=== PATIENT | female | born 1995 | race Caucasian/White ===

== ENCOUNTER 2020-09-22 05:43 | Inpatient (IN) | payer OTHER, SELFPAY ==
[2020-09-22] VITALS (130 sets, daily range): BP systolic 82–147; BP diastolic 33–119; PULSE 28–158; RESP 16; TEMP 37.1–37.3; O2SAT 80–100; BMI 32.8
--- NOTE | 2020-09-22 07:25 | WPDOBADMIT ---
Obstetrics - Admit Note Admission Note: record reviewed. No pertinent additions to the history and/or any subsequent changes in the physical findings that are not consistent with the expected course of the were found. Pt arrived after SROM around 5am today, SVE 6/100/-2, forebag AROM moderate amount of clear and odorless fluid Additions to the history and/or subsequent changes in the physical findings follow. None.
[2020-09-22 07:39] LABS: Basophils Percent Auto 0.2 % (0.2-1.2); Hematocrit 36.2 % (37.0-47.0); Hemoglobin 11.8 g/dL (12.0-15.0); Immature Granulocyte Percent A 0.6 % (0-0.5); Lymphocytes Absolute Auto 1.49 K/mm3 (0.9-3.2); Lymphocytes Percent Auto 8.3 % (18.3-44.2); Mean Corpuscular HGB Conc 32.6 g/dl (32-36); Mean Corpuscular Hemoglobin 28.9 pg (26-34); Mean Corpuscular Volume 88.7 fl (80-100); Mean Platelet Volume 10.4 fl (7.4-10.4); Monocytes Absolute Auto 1.2 K/mm3 (0.1-0.6); Monocytes Percent Auto 6.7 % (2.6-8.5); Neutrophils Absolute Auto 15.1 K/mm3 (1.3-6.7); Neutrophils Percent Auto 84.2 % (45.5-73.1); Platelet Count Result 315 k/mm3 (150-375); Red Blood Count 4.08 M/mm3 (4.2-5.4); Red Cell Distribution Width 13.6 % (11.5-14.5); White Blood Count 17.9 K/mm3 (4.5-10.0)
[2020-09-22] MEDS: LACTATED RINGERS 1,000 ML 125 ML IV CONT ×3 (07:39→09:56)
[2020-09-22] MEDS: fentaNYL CITRATE INJ (*CRX) 100 MCG/2 ML VIAL 50 MCG IV PUSH ×2 (07:53→07:57)
[2020-09-22 07:58] LABS: Amphetamine Screen Urine Negative (Negative); Barbiturate Screen Urine Negative (Negative); Benzodiazepines Screen Urine Negative (Negative); Cannabinoid Screen Urine Positive (Negative); Cocaine Screen Urine Negative (Negative); Methadone Screen Urine Negative (Negative); Opiate Screen Urine Negative (Negative); Phencyclidine Screen Urine Negative (Negative)
--- NOTE | 2020-09-22 08:39 | WPDANESEPPF ---
Anes - Initial Pre Proc Eval Procedure: labor epidural Date/Time: 09/22/20 08:39 Surgeon: Annie Solorio MD Pre Op Diagnosis: Contractions/SROM Patient Data Age: 24 Gender: F Height: 1.65 m Weight: 89.4 kg Last Vital Signs Pulse 107 H 09/22/20 08:38 BP 135/83 09/22/20 08:38 Pulse Ox 99 09/22/20 08:34 Allergies Allergy/AdvReac Type Severity Reaction Status Date / Time cefdinir Allergy Intermediate Hives / Verified 09/04/16 18:43 [place] Penicillins Allergy Intermediate Hives / Verified 09/04/16 18:43 [place] Sulfa (Sulfonamide Allergy Intermediate Hives / Verified 09/04/16 18:43 Antibiotics) Red Face Home Medications Medication Instructions Recorded Confirmed Type prenat.vits,omi,ats-iojb-xrmzc 1 tablet PO DAILY 09/01/20 09/01/20 History [ #2] Laboratory Tests 09/22/20 09/22/20 09/22/20 07:24 07:24 07:24 WBC 17.9 K/mm3 H K/mm3 (4.5-10.0) RBC 4.08 M/mm3 L M/mm3 (4.2-5.4) Hgb 11.8 g/dL L g/dL (12.0-15.0) Hct 36.2 % L % (37.0-47.0) MCV 88.7 fl fl (80-100) MCH 28.9 pg pg (26-34) MCHC 32.6 g/dl g/dl (32-36) RDW 13.6 % % (11.5-14.5) Plt Count 315 k/mm3 k/mm3 (150-375) MPV 10.4 fl fl (7.4-10.4) Immature Gran % (Auto) 0.6 % H % (0-0.5) Neut % (Auto) 84.2 % H % (45.5-73.1) Lymph % (Auto) 8.3 % L % (18.3-44.2) [place] % (Auto) 6.7 % % (2.6-8.5) Eos % (Auto) 0.0 % % (0-4.4) Baso % (Auto) 0.2 % % (0.2-1.2) Lymph # (Auto) 1.49 K/mm3 K/mm3 (0.9-3.2) [place] # (Auto) 1.2 K/mm3 H K/mm3 (0.1-0.6) Eos # (Auto) 0.0 K/mm3 K/mm3 (0-0.3) Baso # (Auto) 0.0 K/mm3 K/mm3 (0.0-0.1) Abs Immat Gran (auto) 0.10 K/mm3 H K/mm3 (0.00-0.031) Absolute Neuts (auto) 15.1 K/mm3 H K/mm3 (1.3-6.7) Absolute Nucleated RBC 0.0 K/mm3 K/mm3 (0.0-0.012) Nucleated RBC % 0.0 % % (0.0-0.2) Urine Opiates Screen Negative (Negative) Urine Methadone Screen Negative (Negative) Ur Barbiturates Screen Negative (Negative) Ur Phencyclidine Scrn Negative (Negative) Ur Amphetamine Screen Negative (Negative) U Benzodiazepines Scrn Negative (Negative) Urine Cocaine Screen Negative (Negative) U Cannabinoids Screen Positive A (Negative) RPR Pending Patient hx anesthesia problems: none Family hx anesthesia problems: none PMFSH Family History Family History (Updated 09/01/20 @ 15:49 by aKtelin Nelson RN) Father Atrial fibrillation Mother Depression Anxiety Asthma Social History Social History Substance use: former Spiritual care concerns: No Anes - Eval Final PreProcedure Day of Procedure 09/22/20 08:39 Patient weight: obese ASA classification: II Anesthesia type and monitoring: regional epidural Informed Consent: The patient's anesthetic plan and its attendant risks and benefits were discussed with the patient/family/POA. Questions were solicited and answers provided to the satisfaction of the patient/family/POA.
--- NOTE | 2020-09-22 09:05 | LDADM ---
This patient, Marisa Mo, was admitted to Labor/Delivery/Recovery 106 on 09/22/20 at 05:43. Plans for labor, pain management and were discussed with patient. Patient/family oriented to hospital policies and general routines including ID bracelet, bed and alarms, visiting hours, pain management, procedures, bathroom and other care routines, personal items, smoking policy, room service/diet and guest tray routines, security routines,call light, and visiting hours. Patient/Family are encouraged to report perceived risks to care and to ask questions if they do not understand what they are told or what they should do. See OBIX for further documentation.
[2020-09-22] MEDS: OXYTOCIN 30 UNITS/NS 500 ML 30 UNITS/500 ML BAG 999 UNITS IV CONT (15:22)
--- NOTE | 2020-09-22 15:38 | PM.OBPRVD ---
OB - Delivery Note Procedure Delivery date: 09/22/20 Intrapartal events: None Induction method: none Delivery monitor: none Route of delivery: Laceration Description: Perineal - 1st Degree Delivery repair: vicryl Specimen: No Quantitative Blood Loss (ml): 28 Anesthesia type: Epidural Disposition: other () [place] Baby Date of : 09/22/20 Time of : 15:18 Weeks of gestation at delivery: 39 Infant gender: Female Weight (pounds): 7 Weight (ounces): 12 presentation: vertex position: Right Occiput Anterior Placenta delivery description: Spontaneous cord vessel description: 3 Vessels and Delayed Cord Clamping score one minute: 9 score five minutes: 9 Narrative: Mom and baby skin to skin and in stable condition.
[2020-09-22] MEDS: ONDANSETRON INJ 4 MG/2 ML VIAL IV PUSH (15:55)
[2020-09-22] MEDS: OXYTOCIN 30 UNITS/NS 500 ML 30 UNITS/500 ML BAG 125 UNITS IV CONT (16:04)
[2020-09-22] MEDS: BENZOCAINE 20% AER SPR (*SP) 56 GM CAN 1 SPRAY TOPICAL (17:36)
[2020-09-22] MEDS: IBUPROFEN 600 MG TABLET PO (17:36)
[2020-09-22] MEDS: WITCH HAZEL 40 PADS 1 PAD TOPICAL (17:36)
--- NOTE | 2020-09-22 18:48 | OBPPTRN ---
Patient transferred to post room #280 via wheelchair with in crib. Support person present. Oriented to unit, room, information board, rooming in, admission packet and security measures. Patient verbalizes understanding.
[2020-09-23] MEDS: IBUPROFEN 600 MG TABLET PO ×3 (01:20→17:10)
[2020-09-23 05:40] VITALS: BP 115/62; PULSE 86; RESP 17; TEMP 37
[2020-09-23 06:46] LABS: Hematocrit 30.6 % (37.0-47.0); Hemoglobin 9.8 g/dL (12.0-15.0)
--- NOTE | 2020-09-23 07:24 | P.PNOB_ITS ---
OB - PN: Subj Subjective Date/time seen: 09/23/20 07:24 Patient comments: no complaints baby status: doing well Star feeding status: exclusively breast feeding OB - PN: Obj Data Labs CBC & Chem 7: 09/23/20 05:53 Labs: Laboratory Results - last 24 hr 09/22/20 09/22/20 09/22/20 07:24 07:24 07:24 WBC 17.9 H RBC 4.08 L Hgb 11.8 L Hct 36.2 L MCV 88.7 MCH 28.9 MCHC 32.6 RDW 13.6 Plt Count 315 MPV 10.4 Immature Gran % (Auto) 0.6 H Neut % (Auto) 84.2 H Lymph % (Auto) 8.3 L [place] % (Auto) 6.7 Eos % (Auto) 0.0 Baso % (Auto) 0.2 Lymph # (Auto) 1.49 [place] # (Auto) 1.2 H Eos # (Auto) 0.0 Baso # (Auto) 0.0 Abs Immat Gran (auto) 0.10 H Absolute Neuts (auto) 15.1 H Absolute Nucleated RBC 0.0 Nucleated RBC % 0.0 Urine Opiates Screen Negative Urine Methadone Screen Negative Ur Barbiturates Screen Negative Ur Phencyclidine Scrn Negative Ur Amphetamine Screen Negative U Benzodiazepines Scrn Negative Urine Cocaine Screen Negative U Cannabinoids Screen Positive A Blood Type B Positive Antibody Screen Negative 09/23/20 05:53 WBC RBC Hgb 9.8 L Hct 30.6 L MCV MCH MCHC RDW Plt Count MPV Immature Gran % (Auto) Neut % (Auto) Lymph % (Auto) [place] % (Auto) Eos % (Auto) Baso % (Auto) Lymph # (Auto) [place] # (Auto) Eos # (Auto) Baso # (Auto) Abs Immat Gran (auto) Absolute Neuts (auto) Absolute Nucleated RBC Nucleated RBC % Urine Opiates Screen Urine Methadone Screen Ur Barbiturates Screen Ur Phencyclidine Scrn Ur Amphetamine Screen U Benzodiazepines Scrn Urine Cocaine Screen U Cannabinoids Screen Blood Type Antibody Screen OB - PN A/P Plan day: 1 Plan: routine care Time Spent With Patient Time: Total time spent is greater than 50% in coordination of care (as document ed) at patient's floor/unit and/or counseling patient: Exam Const: General: cooperative Nutritional Appearance: average body habitus Orientation/consciousness: patient oriented x3 Psych: Affect: normal affect Attitude: cooperative Thought content: Yes Normal thought content present Insight: Good insight present (Psych)
--- NOTE | 2020-09-23 07:33 | WPDANLDPN2 ---
Anes-Prog Note L&D Date/Time: 09/23/20 07:33 Comfortable throughout: labor and delivery Neuraxial method: epidural Epidural/Spinal procedure site: clean & non-tender Neuro status: Neuro function grossly intact. Cardiovascular status: normal Respiratory status: normal Airway patency: baseline Mental status: baseline Post-Op hydration status: normal Vital Signs: Last Vital Signs Temp 37.0 C 09/23/20 05:40 Pulse 86 09/23/20 05:40 Resp 17 09/23/20 05:40 BP 115/62 09/23/20 05:40 Pulse Ox 100 09/22/20 18:55 Pain score (VAS): 0 I/O: Intake & Output 09/22/20 09/22/20 09/23/20 15:59 23:59 07:59 Intake Total 2500 Output Total 28 103 Balance 2472 -103 Post-procedural complaints: none Patient feedback: Patient satisfied with anesthetic care.
[2020-09-23 08:04] VITALS: BP 139/87; PULSE 101; PULSE 86; RESP 17; RESP 22; TEMP 36.7; O2SAT 100
[2020-09-23] MEDS: DOCUSATE SODIUM 100 MG CAPSULE PO ×2 (08:04→17:10)
[2020-09-23] MEDS: POLYSACCHARIDE IRON COMPLEX 150 MG CAPSULE PO ×2 (08:04→17:09)
[2020-09-23] MEDS: MULTIVIT/MIN/PREN/FOL AC/IRON TABLET 1 TAB PO (08:04)
--- NOTE | 2020-09-23 11:11 | PCCCNOTE ---
Care Coordination met with pt. and FOB this morning to discuss D/C planning. Pt.'s current D/C plan is to return home with FOB and baby. Pt. states that she is independent with ADLs and ambulation. Pt. has no medical equipment. Pt. states that she has everything she needs to safely bring baby home. Pt. confirms that she has a crib, car seat, and diapers. Pt. is in process of applying for [facility] and states she will attempt to breast feed baby. Pt. has no concerns about bringing baby home. Pt. was made aware that she tested positive for Marijuana at time of admission. Pt. understands that CC is a mandated policewoman and a report will be made with [employer] Baby's urine has not been tested at this time, but her meconium is pending. CC has submitted an online report through [employer] Pt.'s intake number is [id number]. Will follow.
[2020-09-23 11:30] VITALS: BP 127/86; PULSE 102; RESP 16; TEMP 37.1; O2SAT 99
[2020-09-23 13:09] LABS: Rapid Plasma Reagin Non-Reactive (NonReactive)
[2020-09-23] MEDS: TETANUS,DIPHTHERIA,AC PERTUSSIS ADULT (0.5 ML) BOOSTRIX IM (17:10)
[2020-09-23] MEDS: WITCH HAZEL 40 PADS 1 PAD TOPICAL (17:13)
[2020-09-23] MEDS: BENZOCAINE 20% AER SPR (*SP) 56 GM CAN 1 SPRAY TOPICAL (17:14)
[2020-09-23 18:10] VITALS: RESP 18
[2020-09-23 19:00] VITALS: BP 139/90; PULSE 98; RESP 18; TEMP 36.9; O2SAT 99
[2020-09-24] MEDS: IBUPROFEN 600 MG TABLET PO ×2 (03:40→09:51)
[2020-09-24 08:00] VITALS: BP 127/85; PULSE 99; RESP 16; TEMP 36.7; O2SAT 99
--- NOTE | 2020-09-24 08:02 | PM.OBPNVD ---
OB - PN: Subj Subjective Date/time seen: 09/24/20 08:02 Patient comments: no complaints baby status: doing well OB - PN: Obj Data Labs CBC & Chem 7: 09/23/20 05:53 Labs: Laboratory Results - last 24 hr 09/22/20 07:24 RPR Non-reactive OB - PN A/P Plan day: 2 Plan: routine care and discharge home (F/U in 4 weeks) Time Spent With Patient Time: Total time spent is greater than 50% in coordination of care (as documented) at patient's floor/unit and/or counseling patient: Time with patient: less than 15 minutes Review of Systems Review of Systems: All systems reviewed & are unremarkable except as noted in HPI and below Exam Narrative: Exam Narrative: Fundus firm and vaginal flow controlled. No lower ext redness, warmth, or edema. Negative homans. Const: General: comfortable Chest: Breast/axilla inspection: normal inspection of the breasts Resp: Effort & Inspection: normal respiratory effort Cardio: Rate: regular rate GI: GI Palp: Yes Soft to palpation Psych: Appearance: grossly normal Affect: normal affect Attitude: cooperative Thought content: Yes Normal thought content present Judgement: Good judgement present (Psych)
--- NOTE | 2020-09-24 08:04 | PM.OBDSVD ---
DS: Admitting Diagnosis Admitting Diagnosis Admitting Diagnosis: Labor OB - DS: Summary OB Procedures : None OB Procedures Intrapartum: Spontaneous Vag Delivery OB Procedures: : None Time Spent with Patient Time attestation: Total time spent providing and/or coordinating discharge services: DS: Data Data Completed and Pending Labs on day of discharge: Labs from last 24 hours 09/22/20 07:24 RPR Non-reactive Discharge Plan Discharge Attending physician on discharge: Lucinda Fernandes Discharging Clinician: Shannan Bass Patient Disposition: Home, Self-Care Activity: pelvic rest Diet: as tolerated Patient Instructions: Antibiotic Form Stand Alone Forms: General Discharge Information Follow-up/Referrals: Lucinda Fernandes CNM [Certified Nurse Lead Sharepoint Developer] - Discharge Medications: New polysaccharide iron complex 150 mg iron Capsule 150 mg PO BIDWM Qty: 60 RF: 0 Continued #2 Tablet 1 tablet PO DAILY RF: 0 Date of admission: 09/22/20 05:43 Primary Care Provider: PHYSICIAN,PRESS SET UP PERSON Admitting Provider: Annie Solorio Attending physician on admission: Annie Solorio Condition: Stable
[2020-09-24] MEDS: MULTIVIT/MIN/PREN/FOL AC/IRON TABLET 1 TAB PO (09:50)
[2020-09-24] MEDS: POLYSACCHARIDE IRON COMPLEX 150 MG CAPSULE PO (09:50)
[2020-09-24] MEDS: DOCUSATE SODIUM 100 MG CAPSULE PO (09:50)
--- NOTE | 2020-09-24 10:02 | PC.NURSE ---
Consulted with patient, reviewed infant feeding cues, frequencies, duration of feedings, feeding elimination flow sheet, and signs of adequate intake. Demonstrated stimulation techniques to wake infant for feeding. Assisted with infant to breast. Reviewed positioning/alignment, holding breast and asymmetrical latch on. Infant was able to latch correctly. Demonstrated ways to obtain a deeper latch. Infant nursed eagerly, with steady draws and frequent swallowing noted. Reviewed signs of a correct latch, effective nursing and suck swallow ratio. Infant was able to maintain latch without discomfort to mother. Nipple care reviewed. Instructed mother to call out for RN assistance if she is unable to latch for feeding or she has discomfort with nursing. Instructed feeding should be initiated three hours from start of last feeding or if feeding cues are noted before. Mother voiced understanding of information shared. Mother verbalizes she is able to independently latch infant with appropriate positioning/alignment. She denies any nipple discomfort, is feeding as required and waking infant to feed if needed. Infant has had 8 effective feedings in the past 24 hours, and is currently meeting outcomes for weight, output, jaundice and feeding frequencies. Mother states she feels confident to continue effective at home. Reviewed transition to breast milk, signs of adequate intake, and engorgement/relief. Instructed to call ICP if intake/output less than required. Reviewed community resources on the [facility] website and in the Mom/Baby guide. Information on outpatient services provided. Mother has no further questions at this time.
[2020-09-25 10:45] VITALS: BP 119/66; PULSE 87; RESP 20; TEMP 36.8; O2SAT 100
== END 2020-09-24 14:12 | disposition home or self-care (01) | DRG 560 ==
LOC: ANHLDR 06:53 → ANHOB2 18:51
PROVIDERS: Advanced Practice Midwife; Admitting Provider Obstetrics & Gynecology; Family Provider Pediatrics; Visit Provider Obstetrics & Gynecology
DX: O99.324 Drug use complicating childbirth (principal); Z37.0 Single live birth; Z3A.39 39 weeks gestation of pregnancy; F12.90 Cannabis use, unspecified, uncomplicated; O70.0 First degree perineal laceration during delivery
CPT/HCPCS: 36415; 80307; 84112; 85014; 85018; 85025; 86592; 86850; 86900; 86901; 90715; A9270; J2405; J2590; J2795; J3010; J7120

== ENCOUNTER 2023-11-29 11:54 | Observation (INO) | payer OTHER, SELFPAY ==
--- NOTE | 2023-11-29 11:54 | OBADM ---
This patient, Marisa Mo, admitted to the OB room OB Post 115 for observation. Patient/family oriented to hospital policies and general routines including ID bracelet, bed and alarms, visiting hours, pain management, procedures, bathroom and other care routines, personal items, smoking policy, room service/diet, and visiting hours. Patient/Family are encouraged to report perceived risks to care and to ask questions if they do not understand what they are told or what they should do.
[2023-11-29 12:21] VITALS: BP 116/75; PULSE 98
[2023-11-29 12:30] VITALS: BP 120/61; PULSE 86
[2023-11-29 12:45] VITALS: BP 122/79; PULSE 102
[2023-11-29] MEDS: ONDANSETRON INJ 4 MG/2 ML VIAL IV PUSH (12:54)
[2023-11-29] MEDS: DEXTROSE 5%/LACTATED RINGERS 1,000 ML 999 ML IV CONT (12:54)
[2023-11-29 13:00] VITALS: BP 109/61; PULSE 91
[2023-11-29 13:27] VITALS: BMI 24.9
[2023-11-29 14:06] LABS: Appearance Urine Clear (Clear); Bilirubin Urine Negative (Negative); Blood Urine Negative (Negative); Color Urine Yellow (Yellow); Glucose Urine UA 3+ mg/dL (Negative); Ketones Urine Negative (Negative); Leukocyte Esterase Ur Negative LEU/UL (Negative); Nitrate Urine Negative (Negative); Protein Urine Negative (Negative); Specific Grav Ur 1.017 (1.001-1.035); Urobilinogen Urine 0.2 mg/dL (<2.0)
[2023-11-29 14:13] LABS: Add Urine Microscopic? NO
--- NOTE | 2023-11-30 08:08 | P.PNOB_ITS ---
OB - Triage/Final Diagnosis Visit Information Date of evaluation: 11/29/23 Reason for evaluation: other (nausea and vomiting) Comments/Additional reasons for admission: I have assessed the risk for this patient, Marisa Mo, and determined that she would benefit from observation care. Evaluation Laboratory results: Laboratory Tests 11/29/23 13:56 Urine Color Yellow Urine Appearance Clear Urine pH 7.0 Ur Specific [place] 1.017 Urine Protein Negative Urine Glucose (UA) 3+ H Urine Ketones Negative Ur Blood (Man) Negative Urine Nitrate Negative Urine Bilirubin Negative Urine Urobilinogen 0.2 Ur Leukocyte Esterase Negative Vital signs: Vital Signs - 24 hr 11/29/23 12:21 11/29/23 12:30 11/29/23 12:45 Pulse Rate 98 86 102 H Blood Pressure 116/75 120/61 122/79 Oxygen Delivery 11/29/23 13:00 11/29/23 13:27 Pulse Rate 91 Blood Pressure 109/61 Oxygen Delivery Room Air
== END 2023-11-29 15:23 | disposition home or self-care (01) ==
PROVIDERS: Advanced Practice Midwife; Admitting Provider Obstetrics & Gynecology; Visit Provider Obstetrics & Gynecology
DX: O21.0 Mild hyperemesis gravidarum (principal)
CPT/HCPCS: 81003; 87086; 87088; 96374; G0378; G0379; J2405; J7121

== ENCOUNTER 2024-02-02 10:11 | Inpatient (IN) | payer OTHER, SELFPAY ==
[2024-02-02] VITALS (89 sets, daily range): BP systolic 73–126; BP diastolic 38–80; PULSE 56–105; RESP 16–18; TEMP 36.6–36.8; O2SAT 98–100; BMI 25.7
[2024-02-02] MEDS: LACTATED RINGERS 1,000 ML 125 ML IV CONT (13:20)
[2024-02-02 13:23] LABS: Basophils Percent Auto 0.2 % (0.2-1.2); Eosinophils Percent Auto 0.1 % (0-4.4); Hematocrit 36.7 % (37.0-47.0); Hemoglobin 12.6 g/dL (12.0-15.0); Immature Granulocyte Absolute 0.09 K/mm3 (0.00-0.031); Immature Granulocyte Percent A 0.6 % (0-0.5); Lymphocytes Absolute Auto 1.35 K/mm3 (0.9-3.2); Lymphocytes Percent Auto 8.7 % (18.3-44.2); Mean Corpuscular HGB Conc 34.3 g/dl (32-36); Mean Corpuscular Hemoglobin 30.7 pg (26-34); Mean Corpuscular Volume 89.5 fl (80-100); Mean Platelet Volume 10.3 fl (7.4-10.4); Monocytes Absolute Auto 0.8 K/mm3 (0.1-0.6); Monocytes Percent Auto 4.8 % (2.6-8.5); Neutrophils Absolute Auto 13.2 K/mm3 (1.3-6.7); Neutrophils Percent Auto 85.6 % (45.5-73.1); Platelet Count Result 226 k/mm3 (150-375); Red Cell Distribution Width 12.5 % (11.5-14.5); White Blood Count 15.5 K/mm3 (4.5-10.0)
--- NOTE | 2024-02-02 13:25 | LDADM ---
This patient, Marisa Mo, was admitted to Labor/Delivery/Recovery 103 on 02/02/24 at 10:11. Plans for labor, pain management and were discussed with patient. Patient/family oriented to hospital policies and general routines including ID bracelet, bed and alarms, visiting hours, pain management, procedures, bathroom and other care routines, personal items, smoking policy, room service/diet and guest tray routines, infant security routines, and visiting hours. Patient/Family are encouraged to report perceived risks to care and to ask questions if they do not understand what they are told or what they should do. See OBIX for further documentation.
[2024-02-02 14:16] LABS: HIV 1/2 Ab P24 Ag Result Negative (Negative)
[2024-02-02] MEDS: ONDANSETRON INJ 4 MG/2 ML VIAL IV PUSH (14:40)
[2024-02-02 15:28] LABS: Amphetamine Screen Urine Negative (Negative); Barbiturate Screen Urine Negative (Negative); Benzodiazepines Screen Urine Negative (Negative); Cannabinoid Screen Urine Positive (Negative); Cocaine Screen Urine Negative (Negative); Methadone Screen Urine Negative (Negative); Opiate Screen Urine Negative (Negative); Phencyclidine Screen Urine Negative (Negative)
[2024-02-02] MEDS: OXYTOCIN 30 UNITS/NS 500 ML 30 UNITS/500 ML BAG 999 UNITS IV CONT (16:30)
--- NOTE | 2024-02-02 16:38 | PM.OBPRVD ---
OB - Vaginal Delivery Note Procedure Delivery date: 02/02/24 Induction method: None Delivery augmentation: Rupture of Membranes Delivery monitor: External FHT and External Uterine Route of delivery: Episiotomy description: None Laceration Description: None Specimen: No Quantitative Blood Loss (ml): 40 Anesthesia type: Epidural Disposition: Floor Complications: No immediate complications Baby Date of : 02/02/24 Time of : 16:28 Weeks of gestation at delivery: 39 Infant gender: Female presentation: vertex position: Left Occiput Anterior Placenta delivery description: Spontaneous Cord Vessel Description: 3 Vessels, Clamped/Cut and Delayed Cord Clamping score one minute: 9 score five minutes: 9 Narrative: mother and baby skin to skin in stable condition
[2024-02-02] MEDS: OXYTOCIN 30 UNITS/NS 500 ML 30 UNITS/500 ML BAG 125 UNITS IV CONT (17:07)
[2024-02-02] MEDS: BENZOCAINE 20% AER SPR (*SP) 56 GM CAN 1 SPRAY TOPICAL (17:12)
[2024-02-02] MEDS: WITCH HAZEL 40 PADS 1 PAD TOPICAL (17:12)
--- NOTE | 2024-02-02 19:32 | OBPPTRN ---
Patient transferred to post room #279 via w/c. Support person present. Oriented to unit, room, information board, rooming in, admission packet and security measures. Patient verbalizes understanding.
[2024-02-02] MEDS: IBUPROFEN 600 MG TABLET PO (20:27)
[2024-02-03 00:20] VITALS: BP 96/60; PULSE 81; RESP 18; TEMP 36.4; O2SAT 100
[2024-02-03] MEDS: IBUPROFEN 600 MG TABLET PO ×3 (04:40→16:32)
[2024-02-03 05:07] LABS: Hematocrit 35.2 % (37.0-47.0); Hemoglobin 11.1 g/dL (12.0-15.0)
[2024-02-03 06:50] VITALS: BP 98/52; PULSE 78; RESP 16; TEMP 36.2
[2024-02-03] MEDS: MULTIVIT/MIN/PREN/FOL AC/IRON TABLET 1 TAB PO (06:50)
[2024-02-03] MEDS: ACETAMINOPHEN 325 MG TABLET 650 MG PO (06:50)
--- NOTE | 2024-02-03 09:53 | P.PNOB_ITS ---
OB - PN: Subj Subjective Date/time seen: 02/03/24 09:53 Interval history: PPD#1 Doing well, pain well controlled Bleeding minimal Ready for discharge home today OB - PN: Obj Data Labs 02/03/24 04:35 Labs: Laboratory Results - last 24 hr 02/02/24 02/02/24 02/03/24 13:18 14:44 04:35 WBC 15.5 H RBC 4.10 L Hgb 12.6 11.1 L Hct 36.7 L 35.2 L MCV 89.5 MCH 30.7 MCHC 34.3 RDW 12.5 Plt Count 226 MPV 10.3 Immature Gran % (Auto) 0.6 H Neut % (Auto) 85.6 H Lymph % (Auto) 8.7 L [place] % (Auto) 4.8 Eos % (Auto) 0.1 Baso % (Auto) 0.2 Lymph # (Auto) 1.35 [place] # (Auto) 0.8 H Eos # (Auto) 0.0 Baso # (Auto) 0.0 Abs Immat Gran (auto) 0.09 H Absolute Neuts (auto) 13.2 H Absolute Nucleated RBC 0.000 Nucleated RBC % 0.0 Urine Opiates Screen Negative Urine Methadone Screen Negative Ur Barbiturates Screen Negative Ur Phencyclidine Scrn Negative Ur Amphetamine Screen Negative U Benzodiazepines Scrn Negative Urine Cocaine Screen Negative U Cannabinoids Screen Positive A HIV 1&2 Ab/P24 Ag 4thGn Negative Blood Type B Positive Antibody Screen Negative OB - PN A/P Assessment and Plan (1) (spontaneous vaginal delivery): Code(s): O80 - Encounter for full-term uncomplicated delivery Status: Acute Plan day: 1 Plan: routine care and discharge home Time Spent With Patient Time: Total time spent is greater than 50% in coordination of care (as documented) at patient's floor/unit and/or counseling patient: Review of Systems Review of Systems: All systems reviewed & are unremarkable except as noted in HPI and below Exam Const: General: comfortable and no acute distress Orientation/consciousness: patient oriented x3 Resp: Effort & Inspection: normal respiratory effort
--- NOTE | 2024-02-03 09:55 | P.DS_ITS ---
DS: Admitting Diagnosis Discharge Date 02/03/24 Admitting Diagnosis labor DS: Discharge Diagnosis Discharge Diagnosis (1) (spontaneous vaginal delivery): Code(s): O80 - Encounter for full-term uncomplicated delivery Status: Acute OB - DS: Summary OB Procedures : None OB Procedures Intrapartum: Spontaneous Vag Delivery OB Procedures: : None Peripartum Data Laceration Description: None Episiotomy description: None Time Spent with Patient Time attestation: Total time spent providing and/or coordinating discharge services: DS: Data Data Completed and Pending Labs on day of discharge: Labs from last 24 hours 02/03/24 02/02/24 02/02/24 04:35 14:44 13:18 WBC 15.5 H RBC 4.10 L Hgb 11.1 L 12.6 Hct 35.2 L 36.7 L MCV 89.5 MCH 30.7 MCHC 34.3 RDW 12.5 Plt Count 226 MPV 10.3 Immature Gran % (Auto) 0.6 H Neut % (Auto) 85.6 H Lymph % (Auto) 8.7 L [place] % (Auto) 4.8 Eos % (Auto) 0.1 Baso % (Auto) 0.2 Lymph # (Auto) 1.35 [place] # (Auto) 0.8 H Eos # (Auto) 0.0 Baso # (Auto) 0.0 Abs Immat Gran (auto) 0.09 H Absolute Neuts (auto) 13.2 H Absolute Nucleated RBC 0.000 Nucleated RBC % 0.0 Urine Opiates Screen Negative Urine Methadone Screen Negative Ur Barbiturates Screen Negative Ur Phencyclidine Scrn Negative Ur Amphetamine Screen Negative U Benzodiazepines Scrn Negative Urine Cocaine Screen Negative U Cannabinoids Screen Positive A RPR Pending HIV 1&2 Ab/P24 Ag 4thGn Negative Blood Type B Positive Antibody Screen Negative Discharge Plan Discharge Attending physician on discharge: Armando Monteiro Discharging Clinician: Armando Monteiro Patient Disposition: Home, Self-Care Activity: may shower and pelvic rest Diet: as tolerated Patient Instructions: Antibiotic Form Stand Alone Forms: General Discharge Information Follow-up/Referrals: Lucinda Fernandes CNM [Primary Care Provider] - 4 Weeks Discharge Medications: New ibuprofen 600 mg Tablet 600 mg PO Q6H PRN (Reason: Cramping) Qty: 30 0RF docusate sodium 100 mg Capsule 100 mg PO BID PRN (Reason: Constipation) Qty: 60 0RF No Action No Home Medications Date of admission: 02/02/24 10:11 Primary Care Provider: Lucinda Fernandes Admitting Provider: Poncho Solorio Attending physician on admission: Poncho Solorio Condition: Stable
--- NOTE | 2024-02-03 10:02 | PC.NURSE ---
0900. Introductions were made, then consulted with patient to assess needs related to . Mother explains she has been infant for feedings and topping up with formula after; mom reported wanting to pump and breastfeed when she gets home. Mom reports she has had some difficulties with latching her baby to the L breast/ and that she has some pain with that breast. Encouraged understanding of the benefits of skin to skin (demonstrating unwrapping infant and placing upright on her chest), stimulating with massage touch, changing positions to encourage wakefulness, how to watch for early feeding cues, responsive feeding, feeding on demand (aiming for 8-12 times in 24 hours, about every 2-3 hours), milk production, building/maintaining a milk supply, duration of feeding, signs of adequate intake/output and how to record on the feeding sheet. 1000. Reviewed positioning for L breast in the cross cradle position. Reviewed ear, shoulder, hip alignment, supporting the breast to facilitate a deep latch, asymmetrical latch (off-center), leading with the chin with a big, open, wide gape and body close to mother. latched shallow to the L breast, worked with mom on how to get baby with a deeper latch by pulling babies chin down. Education given to the mother of how to visualize the suckling (with good rocking jaw motion), swallows (dropping of the lower jaw) and how to listen for drinking at the breast (the ka sound). Infant was able to maintain latch without pain to mother protecting the nipple with optimal positioning and latching. Reviewed comfort measures of healing with a warm, wet washcloth to rinse breast, then leave open to air-dry, good handwashing when or touching the breast/nipples to prevent infection. Mother voiced understanding of skin to skin, stimulating with massage touch, responsive feedings, hand expressed colostrum, talking to infant to encourage if it has been 2 -2.5 hours since the start of the last , to call if does not latch, or if there is discomfort with . Resources used for education were facilitated with the visual educational handouts &mom and baby guide. Inpatient resources provided with feeding sheet, name written on the communication board, and the mom/baby guide. Parents voiced understanding of information, demonstrated learning and will call if there is a request for assistance. Nipple shield offered to mother to be able to take home if she continues to have stuggles with latching and pain on the left side. Mom accepted the shield and education given on proper application, storage, and cleanign of the shield. Discussed with mom the nipple shield precautions, possible complications associated with the risks and benefits. Reviewed practicing with a nipple shield, then without and how to protect the milk supply and production. Mom voiced understanding of the importance initiating a pumping schedule if continues to nurse with the shield. Reported to the Primary RN.
--- NOTE | 2024-02-03 10:45 | WPDANLDPN2 ---
Anes-Prog Note L&D Date/Time: 02/03/24 10:45 Comfortable throughout: labor and delivery Neuraxial method: epidural Epidural/Spinal procedure site: tender Neuro status: Neuro function grossly intact. Cardiovascular status: normal Respiratory status: normal Airway patency: baseline Mental status: baseline Post-Op hydration status: normal Vital Signs: Last Vital Signs Temp 36.2 C L 02/03/24 06:50 Pulse 78 02/03/24 06:50 Resp 16 02/03/24 06:50 BP 98/52 L 02/03/24 06:50 Pulse Ox 100 02/03/24 00:20 O2 Del Method Room Air 02/02/24 19:50 Pain score (VAS): 4/10 I/O: Intake & Output 02/02/24 02/03/24 02/03/24 23:59 07:59 15:59 Intake Total 1000 Output Total 185 Balance 815 Post-procedural complaints: none Patient feedback: Patient satisfied with anesthetic care.
[2024-02-05 13:38] VITALS: BP 116/66; PULSE 101; RESP 20; TEMP 36.8; O2SAT 100
[2024-02-05 19:08] LABS: Rapid Plasma Reagin Non-Reactive (NonReactive)
== END 2024-02-03 18:25 | disposition home or self-care (01) | DRG 560 ==
LOC: ANHOB2 02-03 09:59 → ANHLDR 02-06 08:37 → ANHOB2 02-06 08:37
PROVIDERS: Admitting Provider Obstetrics & Gynecology; PCP Advanced Practice Midwife; Visit Provider Obstetrics & Gynecology
DX: O43.113 Circumvallate placenta, third trimester (principal); Z3A.39 39 weeks gestation of pregnancy; Z37.0 Single live birth
CPT/HCPCS: 36415; 80307; 85014; 85018; 85025; 86592; 86703; 86850; 86900; 86901; A9270; G0432; J2405; J2590; J2795; J7120

== ENCOUNTER 2024-06-21 15:26 | Emergency (ER) | payer OTHER, SELFPAY ==
--- NOTE | ~2024-06-21 | XR_ITS ---
EXAMINATION: XR chest 2V DATE: 06/21/2024 15:51 INDICATION: Cough. TECHNIQUE: Frontal and lateral views of the chest were obtained. COMPARISON: Chest 2 views 09/10/2004 FINDINGS: There is no pneumonia, pleural effusion, or pneumothorax. The heart size is normal. IMPRESSION: 1. No acute cardiopulmonary disease. Reviewed, dictated and finalized at location A. PROGRAMMER
[2024-06-21 15:37] VITALS: BP 122/66; PULSE 83; RESP 16; TEMP 36.5; O2SAT 100
--- NOTE | 2024-06-21 15:38 | ED_ITS ---
HPI - URI/Sore Throat General Chief Complaint: Upper Respiratory Infection Stated Complaint: cough Time Seen by Provider: 06/21/24 15:31 Source: patient Mode of arrival: ambulatory Limitations: no limitations History of Present Illness HPI Narrative: Marisa is a 22-year-old female patient presenting to the clinic today with complaints of cough x1 week. She reports she has a barky cough. Daughter was diagnosed with walking pneumonia at the [facility] today and she felt as though she needed to come in and be evaluated for pneumonia. Denies fever, chills, body aches. Does report some nasal congestion. MD elicited complaint: cough and nasal congestion Related Data Allergies Allergy/AdvReac Type Severity Reaction Status Date / Time cefdinir Allergy Intermediate Hives / Verified 06/21/24 15:35 Red Face Penicillins Allergy Intermediate Hives / Verified 06/21/24 15:35 Red Face Sulfa (Sulfonamide Allergy Intermediate Hives / Verified 06/21/24 15:35 Antibiotics) Red Face Review of Systems Review of Systems: Pertinent positives per HPI. Patient denies any fever, chills, rash, headache, visual changes, dizziness, shortness of breath, chest pain, palpitations, nausea, vomiting, diarrhea, constipation, abdominal pain, or any urinary issues. [facility] Family History Family History Father Atrial fibrillation Mother Depression Anxiety Asthma Social History Social History Smoking status: Never smoker Additional smoking assessment comments: Pt smokes marijuana Substance use: never Do You Feel Safe in your Home?: Yes Lack of Transportation: No Lack of Food: Never True Current Housing: I Have Housing Concerned About Future Housing: No Difficulty Paying Gas/Electric Bills: No Difficulty Paying for Meds: No Currently Unemployed: No Education: High School Diploma/GED Difficulty w/ Childcare or Family Care: No Spiritual care concerns: No Comments At the time of my signature, I reviewed and agree with the nursing past medical, surgical, social, and family history. There is no relevant family history pertinent to the patient complaint. Exam Narrative: General: Well-developed, well nourished, in no apparent distress Head: Normocephalic, atraumatic Eyes: Pupils equally round and reactive to light bilaterally, EOM intact, sclera and conjunctive clear, no discharge, lids normal Ears: TMs intact and clear, ear canals clear, no drainage, grossly hearing normal. Nose: Nares patent, clear nasal discharge, no inflammation, no sinus tenderness. Mouth: Oral pharynx without lesions or masses, good dentition, MMM. Neck: Supple, trachea midline, no enlargement of anterior or posterior cervical nodes, no thyroid masses or goiter palpable. Cardio: Regular rate and rhythm, s1 and s2 normal, no murmur appreciated. Resp: Clear to auscultation bilaterally, no rhonchi, rales, wheezing or rubs Course Course Emergency Course: Portions of this record may have been created with voice recognition software. Level of Care: Express Care Visit Vital Signs Vital signs: Vital Signs Temperature 36.5 C 06/21/24 15:37 Pulse Rate 83 06/21/24 15:37 Respiratory Rate 16 06/21/24 15:37 Blood Pressure 122/66 06/21/24 15:37 Pulse Oximetry 100 06/21/24 15:37 Temperature 36.5 C 06/21/24 15:37 Pulse Rate 83 06/21/24 15:37 Respiratory Rate 16 06/21/24 15:37 Blood Pressure 122/66 06/21/24 15:37 Pulse Oximetry 100 06/21/24 15:37 Vital signs reviewed MDM - URI/Sore Throat MDM Narrative Medical decision making narrative: At the time of visit patient is resting comfortably on the exam table. Patient appears to be nontoxic. Diagnostics: Chest x-ray was negative for any acute cardiopulmonary process Plan: I suspect patient URI with cough and congestion. Prescription for albuterol inhaler and prednisone was sent to the pharmacy. Supportive measures were discussed with the patient and they voiced understanding discharge instructions and agrees to treatment plan. Return precautions reviewed Differential Diagnosis Differential diagnosis: Likely sinusitis, viral infection, influenza and pharyngitis Discharge Plan Discharge Clinical Impression: Upper respiratory infection with cough and congestion Patient Disposition: Home, Self-Care Condition: Stable Instructions: Antibiotic Form, Upper Respiratory Infection (ED) Additional Instructions: Chest x-rays negative for any acute cardiopulmonary process. Take prescription medications only as prescribed-prednisone and albuterol inhaler Increase fluids and stay well hydrated Tylenol/motrin for pain/fever Flonase and OTC antihistamines as directed Vicks vapor rub to open sinuses Sinus rinses for congestion Cepacol spray, cough drops, throat lozenges, warm tea with honey/lemon, gargle salt water to soothe throat BRAT diet for diarrhea Clear liquids x 24 hours then advance as tolerated for nausea/vomiting Go to the ED if you develop a worsening in your condition- high fever not controlled by Tylenol or Motrin, dehydration, weakness, lethargy, shortness of breath, or chest pain. Follow up with your PCP in 3-5 days if symptoms persist. Prescriptions: New prednisone 20 mg tablet 40 mg PO DAILY 5 Days Qty: 10 0RF albuterol sulfate 90 mcg/actuation HFA aerosol inhaler 2 puff inhalation Q4-6H PRN (Reason: shortness of breath or wheezing) 30 Days Qty: 8.5 0RF Follow-up/Referrals: PHYSICIAN,SMOKED MEAT PREPARER [Primary Care Provider] - Time of Disposition: 15:59 Quality NIHSS Nursing Documentation ED NIHSS nursing documentation: reviewed/agree
== END 2024-06-21 16:03 | disposition home or self-care (01) ==
PROVIDERS: Emergency Provider Nurse Practitioner Family
DX: J06.9 Acute upper respiratory infection, unspecified (principal)
CPT/HCPCS: 71046; 99213; G0463

== ENCOUNTER 2024-06-28 10:12 | Emergency (ER) | payer OTHER, SELFPAY ==
--- NOTE | ~2024-06-28 | XR_ITS ---
EXAMINATION: XR chest 2V DATE: 06/28/2024 11:19 INDICATION: Cough and congestion TECHNIQUE: frontal and lateral views of the chest were obtained. COMPARISON: Chest radiograph dated 06/21/2024 FINDINGS: The lungs remain clear with no focal airspace opacities, pulmonary edema, pleural effusion or pneumot horax. The cardiomediastinal silhouette is normal. Mild thoracolumbar levocurvature. Mild thoracic sp ondylosis with chronic minimal anterior wedging of a couple mid thoracic vertebral bodies. IMPRESSION: 1. No acute cardiopulmonary disease. Reviewed, dictated and finalized at location A. P RANCHER
[2024-06-28 10:27] VITALS: BP 118/80; PULSE 103; RESP 16; TEMP 36.4; O2SAT 100
--- NOTE | 2024-06-28 11:30 | ED.URI ---
HPI - URI/Sore Throat General Chief Complaint: Upper Respiratory Infection Stated Complaint: Congestion Time Seen by Provider: 06/28/24 11:00 Source: patient Mode of arrival: ambulatory Limitations: no limitations History of Present Illness HPI Narrative: 28-year-old female presents with complaint of sinus pressure, sinus congestion, postnasal drainage, coughing for the past 10 days. Afebrile. Worsening of congestion. Patient states her was diagnosed with pneumonia. Patient requesting chest x-ray. Taking Claritin daily. All systems reviewed and negative except as noted above. Related Data Allergies Allergy/AdvReac Type Severity Reaction Status Date / Time cefdinir Allergy Intermediate Hives / Verified 06/28/24 10:38 Red Face Penicillins Allergy Intermediate Hives / Verified 06/28/24 10:38 Red Face Sulfa (Sulfonamide Allergy Intermediate Hives / Verified 06/28/24 10:38 Antibiotics) Red Face Review of Systems Review of Systems: CONSTITUTIONAL: Denies fever, chills, or sweats. EYES: Denies visual changes, redness, or discharge. ENT: Reports rhinorrhea, congestion, sinus congestion, postnasal drainage. Denies sore throat, or otalgia. CARDIOVASCULAR: Denies chest pain, palpitations, or edema. RESPIRATORY: Reports cough. Denies dyspnea. GASTROINTESTINAL: Denies abdominal pain, nausea, vomiting, or diarrhea. GENITOURINARY: Denies dysuria or hematuria. SKIN: Denies rash or itching. MUSCULOSKELETAL: Denies back pain, joint pain, or myalgia. NEUROLOGIC: Denies headache, numbness, or weakness. PSYCHIATRIC: Denies anxiety or depression. All other systems reviewed are negative, except as documented in HPI. [facility] Family History Family History Father Atrial fibrillation Mother Depression Anxiety Asthma Social History Social History Smoking status: Never smoker Additional smoking assessment comments: Pt smokes marijuana Substance use: never Do You Feel Safe in your Home?: Yes Lack of Transportation: No Lack of Food: Never True Current Housing: I Have Housing Concerned About Future Housing: No Difficulty Paying Gas/Electric Bills: No Difficulty Paying for Meds: No Currently Unemployed: No Education: High School Diploma/GED Difficulty w/ Childcare or Family Care: No Spiritual care concerns: No Comments At time of signature, agree with nursing past medical, surgical, social and family history. There is no relevant family history pertinent to the presenting complaint. Exam Narrative: GENERAL: This is a well-nourished, well-developed patient, in no apparent distress. HEAD: normocephalic, atraumatic. EYES: PERRL. Sclera clear/white. Vision is grossly intact. EARS: External ears normal, auditory canals clear and without drainage, TMs normal without perforation. Hearing grossly intact. NOSE: External nose normal with moderate congestion, purulent nasal drainage, erythema and swelling to bilateral nares. Bilateral maxillary sinus tenderness on palpation. THROAT: Mucous membranes moist, erythema with brown postnasal drainage NECK: Neck supple, non-tender without lymphadenopathy, masses or thyromegaly. CARDIOVASCULAR: Regular rate and rhythm without murmurs, gallops, or rubs. RESPIRATORY: Rhonchi throughout all lung manriquez. Breath sounds equal bilaterally. No wheezes, rales SKIN: warm, Dry, intact with no suspicious lesions or rash, good texture and turgor. NEURO: awake, alert, and oriented to person, place and time. There were no obvious focal neurologic abnormalities. EXTREMITIES: No joint tenderness, effusion, or edema noted. Course Course Level of Care: Express Care Visit Vital Signs Vital signs: Vital Signs Temperature 36.4 C L 06/28/24 10:27 Pulse Rate 103 H 06/28/24 10:27 Respiratory Rate 16 06/28/24 10:27 Blood Pressure 118/80 06/28/24 10:27 Pulse Oximetry 100 06/28/24 10:27 Temperature 36.4 C L 06/28/24 10:27 Pulse Rate 103 H 06/28/24 10:27 Respiratory Rate 16 06/28/24 10:27 Blood Pressure 118/80 06/28/24 10:27 Pulse Oximetry 100 06/28/24 10:27 Reviewed MDM - URI/Sore Throat MDM Narrative Medical decision making narrative: Chest x-ray negative for pneumonia. Will treat patient for bacterial sinusitis due to duration of symptoms and exam findings. Patient is aware of diagnosis, understands and agrees to treatment plan. Anticipatory guidance given. Patient agrees to follow-up as directed and is aware of reasons to seek care at the emergency department. Portions of this record may have been created with voice recognition software Differential Diagnosis Differential diagnosis: Likely upper respiratory infection, sinusitis, viral infection, influenza and pharyngitis Imaging Data My impression: Agree with radiologist Radiologist's impression: EXAMINATION: XR chest 2V DATE: 06/28/2024 11:19 INDICATION: Cough and congestion TECHNIQUE: frontal and lateral views of the chest were obtained. COMPARISON: Chest radiograph dated 06/21/2024 FINDINGS: The lungs remain clear with no focal airspace opacities, pulmonary edema, pleural effusion or pneumothorax. The cardiomediastinal silhouette is normal. Mild thoracolumbar levocurvature. Mild thoracic spondylosis with chronic minimal anterior wedging of a couple mid thoracic vertebral bodies. IMPRESSION: 1. No acute cardiopulmonary disease. Discharge Plan Discharge Clinical Impression: Acute bacterial sinusitis Patient Disposition: Home, Self-Care Condition: Stable Instructions: Antibiotic Form, Sinusitis (ED) Additional Instructions: Your chest x-ray was negative for pneumonia. Take antibiotic as prescribed until gone. Continue taking Claritin daily. Take [id number] Sudafed as directed on packaging. Drink at least 64 oz of water a day. Follow-up with your doctor if symptoms are not improving. Prescriptions: New fluticasone propionate [Flonase Allergy Relief] 50 mcg/actuation spray,suspension 1 spray intranasal BID Qty: 16 0RF Rx Instructions: administer into each nostril doxycycline hyclate 100 mg capsule 100 mg PO BID 7 Days Qty: 14 0RF No Action albuterol sulfate 90 mcg/actuation HFA aerosol inhaler 2 puff inhalation Q4-6H PRN (Reason: shortness of breath or wheezing) 30 Days Qty: 8.5 0RF Follow-up/Referrals: PHYSICIAN,HUMAN RESOURCES OPERATIONS MANAGER [Primary Care Provider] - Time of Disposition: 11:35
== END 2024-06-28 11:47 | disposition home or self-care (01) ==
PROVIDERS: Emergency Provider Nurse Practitioner Family
DX: J01.90 Acute sinusitis, unspecified (principal)
CPT/HCPCS: 71046; 99213; G0463